=== PATIENT | male | born 2000 | race Caucasian/White ===

== ENCOUNTER 2022-04-28 01:22 | Emergency (ER) | payer OTHER | END 2022-04-28 02:46 | disposition home or self-care (01) | LOC: CSHERS 01:22 → EDBD 01:22 → CSHERS 02:46 | DX: S09.90XA Unspecified injury of head, initial encounter (principal); F10.129 Alcohol abuse with intoxication, unspecified; Y90.9 Presence of alcohol in blood, level not specified; Y04.2XXA Assault by strike against or bumped into by another person, initial encounter | CPT/HCPCS: 70450 ==